=== PATIENT | female | born 2000 | race Caucasian/White ===

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

== ENCOUNTER 2020-12-25 21:36 | Emergency (ER) | payer BC ==
[~2020-12-25] VITALS: Ht 170.2 cm; Wt 69.5 kg
[~2020-12-25 21:36] MED LIST: IBUP600T16 PO
[2020-12-25 21:52] VITALS: BP 130/86
[2020-12-25] MEDS ORDERED: diphenhydrAMINE HCL 25 MG CAPSULE PO ONE (22:15)
[2020-12-25] MEDS ORDERED: oxyCODONE/APAP 5/325 1 TAB TABLET PO ONE (22:15)
--- NOTE | 2020-12-25 22:16 | PHYS DOC ---
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 Denies any fevers, pain or trouble swallowing, neck pain, chest pain, shortness of breath, abdominal pain, nausea, vomiting. States she did take some Tylenol and ibuprofen earlier which only gave minimal relief. Review of Systems Review of Systems Review of systems otherwise unremarkable except noted in HPI Allergies Allergies Allergies Coded Allergies Type Severity Reaction Last Updated Verified Sulfa (Sulfonamide Antibiotics) Allergy Mild 12/25/20 Yes Physical Exam Physical Exam Constitutional: Well developed, well nourished, no acute distress, non-toxic appearance. [] HENT: Normocephalic, atraumatic, oropharynx moist, no oral exudates, back left bottom molar extracted with sutures in place, with no significant erythema or edema or drainage, nose normal. [] Eyes:conjunctiva normal, no discharge. [] Neck: Normal range of motion, no tenderness, supple, no stridor. [] Neurologic: Alert and oriented X 3, no focal deficits noted. [] Psychologic: Affect normal, judgement normal, mood normal. [] Current Patient Data Vital Signs Vital Signs Date Time Temp Pulse Resp B/P (MAP) Pulse Ox O2 Delivery O2 Flow Rate FiO2 12/25/20 21:52 97.9 72 18 130/86 99 Room Air EKG EKG [] Radiology/Procedures Radiology/Procedures [] Heart Score C/O Chest Pain: No Risk Factors: Risk Factors: DM, Current or recent (<one month) smoker, HTN, HLP, family history of CAD, obesity. Risk Scores: Risk Factors: DM, Current or recent (<one month) smoker, HTN, HLP, family history of CAD, obesity. Course & Med Decision Making Course & Med Decision Making Patient is a 20-year-old female comes in with dental pain Vital signs not concerning. Physical exam noted above. States she just took Tylenol 3 hours ago and 400 mg of ibuprofen an hour ago. Given oral pain medicine here. Discussed pain management strategies at home. Advised to follow-up with dentist as soon as she can to update and set up follow-up. Gave return precautions to the ED. Patient grateful, verbalized understanding and agreed with plan of discharge. [] Dragon Disclaimer Dragon Disclaimer This electronic medical record was generated, in whole or in part, using a voice recognition dictation system. Departure Departure: Impression: Primary Impression: Pain, dental Disposition: HOME / SELF CARE / HOMELESS Condition: GOOD Referrals: DARYL ANTOINE MD (PCP) Patient Instructions: Dental Pain Additional Instructions: Thank you for coming into the emergency department tonight and allowing us to take care of you. Please read all the attached information above carefully to go back over what we discussed. You can use Tylenol, ibuprofen and Benadryl as we discussed. Please continue to take your amoxicillin. Please call your dentist as soon as possible to update on your ED visit and set up a follow-up visit. Please come back to the ED with new or concerning symptoms as discussed. SHAWNA SANFORD MD Dec 25, 2020 22:16
== END 2020-12-25 22:32 | disposition home or self-care (01) ==
LOC: ER 21:36
DX: G89.18 Other acute postprocedural pain (principal); K08.89 Other specified disorders of teeth and supporting structures; Z88.2 Allergy status to sulfonamides
CPT/HCPCS: 99283; Q0163